=== PATIENT | male | born 1960 | race Caucasian/White ===

== ENCOUNTER 2016-10-21 20:21 | Observation (INO) | payer OTHER ==
--- NOTE | ~2016-10-21 | HP ---
Unit #: [id number] #: [id number] Patient: SERGEI WILLIS [id number] [address] [address] [id number] MR#: [id number] NAME: SERGEI WILLIS ROOM: 216 Age: 56 Sex: M Admission Date: 10/21/2016 : 1960 Attending Physician: Aniceto Weiss M.D. Referring Physician: Lazaro Canseco Jr., A.P.RDebbi. Primary Care Physician: Lazaro Canseco Jr., YuvalPNolviaRDebbi. HISTORY AND PHYSICAL REASON FOR ADMISSION Dysphagia. HISTORY OF PRESENT ILLNESS Mr. Willis is a 56-year-old gentleman who says he feels like something is stuck in his stomach for three days. He ate apparently a piece of meat two days ago and since then he has not been able to eat or drink much. He denies any chest pain. Denies any abdominal pain. He denies any other complaints at this time. PAST MEDICAL HISTORY Hypertension. PAST SURGICAL HISTORY SOCIAL HISTORY Smoker. Denies alcohol. ALLERGIES Codeine. CURRENT MEDICATIONS None. REVIEW OF SYSTEMS Complete review of systems was done, which was unremarkable other than as mentioned above. PHYSICAL EXAMINATION VITALS: Stable. Temperature 98.3, pulse 85, respiratory rate 16, blood pressure 139/85. HEENT: Pupils equal and reactive. Sclerae anicteric. Oral mucosa moist. NECK: No jugular venous distension. No (1)____. CHEST: Clear to auscultation bilaterally. HEART: S1 and S2. Regular rate and rhythm. No murmurs. ABDOMEN: Soft, nontender and nondistended. EXTREMITIES: Without clubbing, cyanosis or edema. NEUROLOGIC: Intact. SKIN: Warm and dry. DIAGNOSTIC STUDIES LABORATORY: Chemistry completely unremarkable. Coags not done. CBC with white blood cell count 11.7, normal hemoglobin, hematocrit and platelet Unit #: [id number] #: [id number] Patient: SERGEI WILLIS count. ASSESSMENT/PLAN The patient's symptoms are consistent with pattern of meat impaction. Will keep him n.p.o. and plan on doing upper endoscopy. Will also give him (2) for now. The risks and benefits of the procedure we discussed with the patient and he is agreeable and wants to proceed. Dictated by Aniceto Weiss M.D. SKJ/gz TD: 10/22/2016 09:07 JOB #: [id number] CC: Lazaro Canseco Jr., Poonam Weiss M.D. HISTORY AND PHYSICAL Page 1 of 1 X Aniceto Weiss MD X HISTORY AND PHYSICAL
--- NOTE | ~2016-10-21 | OR ---
Unit #: [id number] #: [id number] Patient: SERGEI DODD [id number] [address] [place], [place] [address] [id number] MR#: [id number] NAME: SERGEI DODD ROOM: 216 Date of Procedure: 10/22/2016 Admission Date: 10/21/2016 Surgeon: Aniceto Weiss M.D. : 1960 Attending Physician: Aniceto Weiss M.D. Referring Physician: Lazaro Canseco Jr., Orestes.P.RNolviaN. Primary Care Physician: Lazaro Canseco Jr., A.P.RNolviaNNolvia OPERATIVE REPORT PROCEDURE PERFORMED Esophagogastroduodenoscopy with foreign body removal from esophagus; esophagogastroduodenoscopy with biopsies. INDICATIONS FOR PROCEDURE A 56-year-old presented with acute dysphagia after possible meat impaction. MEDICATIONS Monitored anesthesia. POSTOPERATIVE FINDINGS 1. A large piece of meat stuck in distal esophagus was removed using a Caraballo Net. 2. Esophageal stricture at GE junction along with mild esophagitis and a large hiatal hernia. 3. Mild to moderate gastritis diffusely. 4. Severe duodenitis with small superficial ulcers. 5. Biopsies were taken in antrum and body looking for Helicobacter pylori. PLAN PPI therapy. Repeat upper endoscopy after 6 to 8 weeks' time. DESCRIPTION OF PROCEDURE The patient was explained of the procedure, risks, and benefits along with risks and benefits of anesthesia. He was brought to the endoscopy room. Propofol anesthesia was given. Bite block was placed. The scope was passed down the mouth into the esophagus. Distal esophagus showed a large piece of meat. At this point, we used a Caraballo snare to grab the piece. After a few attempts, we were able to remove the piece altogether. The scope was then completed all the way to the descending duodenum. Findings as described. Biopsies were taken from the antrum and body. Gently, I pulled it out. He tolerated it well. No major complications were seen. Dictated by... Letty Hodges/josy TD: 10/23/2016 00:33 JOB #: [id number] Unit #: [id number] #: [id number] Patient: SERGEI DODD OPERATIVE REPORT Page 1 of 1 X Aniceto Weiss MD PROCEDURE OPERATIVE NOTE
[2016-10-21 19:59] LABS: BASOPHIL% 0.4 % (0-2.5); EOSINOPHIL# 0.1 X10e3 (0-0.7); EOSINOPHIL% 0.6 % (0.0-7.0); HEMOGLOBIN 15.6 gm/dL (13.0-16.0); LYMPHOCYTE% 17.1 % (17.0-45.0); MEAN CELL VOLUME 92.6 FL (83-96); MEAN CORPUSCULAR HEMOGLOBIN 30.7 PG (28-34); MEAN CORPUSCULAR HGB CONC 33.1 g/dL (30-36); MEAN PLATELET VOLUME 7.9 FL (6.5-11.5); MONOCYTE# 0.8 X10e3 (0-1.0); MONOCYTE% 6.7 % (3.0-12.0); NEUTROPHIL# 8.8 X10e3 (1.5-7.1); NEUTROPHIL% 75.2 % (40-75); PLATELET COUNT 274 X10e3 (140-420); RED BLOOD COUNT 5.07 X10e (3.90-5.60); RED CELL DISTRIBUTION WIDTH 13.4 % (11.0-15.5); WHITE BLOOD COUNT 11.7 X10e3 (4.0-10.5)
[2016-10-21 20:06] LABS: DIFF IND NO
[2016-10-21 20:11] LABS: URINE SOURCE CLEAN CATCH
[2016-10-21 20:18] LABS: URINE APPEARANCE CLEAR; URINE BILIRUBIN NEG (NEG); URINE BLOOD NEG (NEG); URINE COLOR DK YELLOW; URINE GLUCOSE NEG (NEG); URINE KETONE 2+ (NEG); URINE LEUKOCYTE ESTERASE NEG (NEG); URINE NITRATE NEG (NEG); URINE PROTEIN NEG (NEG); URINE SPECIFIC GRAVITY 1.027 (1.003-1.035)
[~2016-10-21 20:21] MED LIST: ALBUTEROL17 G1 IH; ATROVENT15 ML; BACTRIM DS TABL1 TA1 PO; LIPITOR20 MG DOB; NORCO 7.5-3251 EACH; SINGULAIR PO
[2016-10-21 20:23] LABS: CULTURE INDICATED? NO
[2016-10-21 20:29] LABS: ALBUMIN SERUM 4.7 g/dL (3.5-5.0); BILIRUBIN, DIRECT 0.1 mg/dL (0.0-0.2); BILIRUBIN,INDIRECT 0.8 mg/dL (0.0-0.9); BILIRUBIN,TOTAL 0.9 mg/dL (0.2-2.0); BUN/CREATININE RATIO 21.11; CALCIUM SERUM 9.4 mg/dL (8.4-10.2); CREATININE SERUM 0.9 mg/dL (0.6-1.4); GLOM FILT RATE Estimated 95.1 mL/min (>60); POTASSIUM 4.2 mmol/L (3.5-5.1)
[2016-10-21] MEDS ORDERED: NO MEDICATIONS (22:54)
[2016-10-22] MEDS ORDERED: PANTOPRAZOLE SO40 MG PO (11:40)
== END 2016-10-22 14:34 | disposition home or self-care (01) ==
LOC: CED 20:21 → CEDOF 22:50 → C2A 10-22 07:33
PROVIDERS: Emergency Medicine
PROC: 0DC58ZZ Extirpation of Matter from Esophagus, Via Natural or Artificial Opening Endoscopic (ICD-10-PCS; principal; 2016-10-21)
PROC: 0DB78ZX Excision of Stomach, Pylorus, Via Natural or Artificial Opening Endoscopic, Diagnostic (ICD-10-PCS; 2016-10-21)
DX: T18.128A Food in esophagus causing other injury, initial encounter (principal); X58.XXXA Exposure to other specified factors, initial encounter; K22.2 Esophageal obstruction; K44.9 Diaphragmatic hernia without obstruction or gangrene; K29.50 Unspecified chronic gastritis without bleeding; K20.9 Esophagitis, unspecified; K63.89 Other specified diseases of intestine; K29.80 Duodenitis without bleeding; K26.9 Duodenal ulcer, unspecified as acute or chronic, without hemorrhage or perforation; I10 Essential (primary) hypertension; F17.200 Nicotine dependence, unspecified, uncomplicated; Z79.899 Other long term (current) drug therapy; Z88.5 Allergy status to narcotic agent
CPT/HCPCS: 80048; 80076; 81003; 83690; 85025; 88305; 88312; 96361; 96365; 96366; 96374; 96375; 99285; G0378; J1610